=== PATIENT | female | born 1960 | race Caucasian/White ===

== ENCOUNTER → 2024-05-16 13:19 | Outpatient (REF) | payer MEDICARE, SELFPAY | LOC: WDC 13:19 | PROVIDERS: ATTENDING PHYSICIAN Obstetrics & Gynecology Gynecology; FAMILY PHYSICIAN Internal Medicine | DX: M85.89 Other specified disorders of bone density and structure, multiple sites (principal); Z12.31 Encounter for screening mammogram for malignant neoplasm of breast | CPT/HCPCS: 77063; 77067; 77080 ==

== ENCOUNTER 2024-11-15 07:07 | Outpatient (RCR) | payer MEDICARE, SELFPAY | END 2024-11-15 23:59 | disposition home or self-care (01) | LOC: RPT 07:07 | PROVIDERS: ATTENDING PHYSICIAN Physician Assistant; FAMILY PHYSICIAN Internal Medicine | DX: K59.4 Anal spasm (principal); M62.89 Other specified disorders of muscle; R10.2 Pelvic and perineal pain; R15.9 Full incontinence of feces; Z73.6 Limitation of activities due to disability; K58.0 Irritable bowel syndrome with diarrhea | CPT/HCPCS: 97163; 97530 ==

== ENCOUNTER 2024-12-13 10:58 | Outpatient (RCR) | payer MEDICARE, SELFPAY | END 2024-12-13 23:59 | disposition home or self-care (01) | LOC: RPT 10:58 | PROVIDERS: ATTENDING PHYSICIAN Physician Assistant; FAMILY PHYSICIAN Internal Medicine | DX: K59.4 Anal spasm (principal); M62.89 Other specified disorders of muscle; R10.2 Pelvic and perineal pain; R15.9 Full incontinence of feces; Z73.6 Limitation of activities due to disability; K58.9 Irritable bowel syndrome, unspecified | CPT/HCPCS: 97140; 97530 ==

== ENCOUNTER 2025-01-08 15:06 | Outpatient (RCR) | payer MEDICARE, SELFPAY | END 2025-01-08 23:59 | disposition home or self-care (01) | LOC: RPT 15:06 | PROVIDERS: ATTENDING PHYSICIAN Physician Assistant; FAMILY PHYSICIAN Internal Medicine | DX: K59.4 Anal spasm (principal); M62.89 Other specified disorders of muscle; R10.2 Pelvic and perineal pain; R15.9 Full incontinence of feces; Z73.6 Limitation of activities due to disability; K58.9 Irritable bowel syndrome, unspecified | CPT/HCPCS: 97010; 97014; 97112; 97140; 97530 ==

== ENCOUNTER 2025-02-13 09:22 | Outpatient (RCR) | payer MEDICARE, SELFPAY | END 2025-02-13 23:59 | disposition home or self-care (01) | LOC: RPT 09:22 | PROVIDERS: ATTENDING PHYSICIAN Physician Assistant; FAMILY PHYSICIAN Internal Medicine | DX: K59.4 Anal spasm (principal); M62.89 Other specified disorders of muscle; R10.2 Pelvic and perineal pain; R10.20 Pelvic and perineal pain unspecified side; R15.9 Full incontinence of feces; Z73.6 Limitation of activities due to disability; K58.9 Irritable bowel syndrome, unspecified | CPT/HCPCS: 97014; 97110; 97112; 97140; 97530 ==

== ENCOUNTER 2025-03-06 11:32 | Outpatient (RCR) | payer MEDICARE, SELFPAY | END 2025-03-06 23:59 | disposition home or self-care (01) | LOC: RPT 11:32 | PROVIDERS: ATTENDING PHYSICIAN Physician Assistant; FAMILY PHYSICIAN Internal Medicine | DX: K59.4 Anal spasm (principal); M62.89 Other specified disorders of muscle; R10.20 Pelvic and perineal pain unspecified side; R15.9 Full incontinence of feces; Z73.6 Limitation of activities due to disability; K58.9 Irritable bowel syndrome, unspecified; R10.2 Pelvic and perineal pain | CPT/HCPCS: 97014; 97112; 97140; 97530 ==

== ENCOUNTER 2025-03-26 07:04 | Outpatient (RCR) | payer MEDICARE, SELFPAY | END 2025-03-26 09:59 | disposition home or self-care (01) | LOC: RPT 07:04 | PROVIDERS: ATTENDING PHYSICIAN Physician Assistant; FAMILY PHYSICIAN Internal Medicine | DX: K59.4 Anal spasm (principal); M62.89 Other specified disorders of muscle; R10.20 Pelvic and perineal pain unspecified side; R15.9 Full incontinence of feces; Z73.6 Limitation of activities due to disability; K58.9 Irritable bowel syndrome, unspecified; R10.2 Pelvic and perineal pain | CPT/HCPCS: 97140; 97530 ==